=== PATIENT | female | born 1930 | race African-American/Black ===

== ENCOUNTER 2017-03-28 17:15 | Inpatient (IN) ==
[2017-03-28] MEDS ORDERED: ONDANSETRON 4 MG/2 ML VIAL IV PRN ×2 (18:23→19:07)
[2017-03-28] MEDS ORDERED: MAGNESIUM SULF RIDER 4 GM in PREMIX 1 EACH IV PRN (18:23)
[2017-03-28] MEDS ORDERED: MAGNESIUM SULF RIDER 2 GM in PREMIX 1 EACH IV PRN (18:23)
[2017-03-28] MEDS ORDERED: ENOXAPARIN 40 MG/0.4 ML SYRINGE SUBCUT SCH (18:30)
[2017-03-28] MEDS ORDERED: SODIUM CHLORIDE 0.9% 1,000 ML IV SCH (18:30)
[2017-03-28] MEDS ORDERED: metroNIDAZOLE INJ 500 MG in PREMIX 1 EACH IV SCH (18:30)
[2017-03-28] MEDS ORDERED: CIPROFLOXACIN INJ 400 MG in PREMIX 1 EACH IV SCH (18:30)
[2017-03-28] MEDS ORDERED: ACETAMINOPHEN 325 MG TABLET PO PRN (19:07)
[2017-03-28] MEDS: CIPROFLOXACIN INJ 400 MG in PREMIX 1 EACH IV SCH (21:59)
[2017-03-28] MEDS: SODIUM CHLORIDE 0.9% 1,000 ML IV SCH (22:00)
[2017-03-28] MEDS: DOCUSATE SODIUM 100 MG CAPSULE PO SCH (22:18)
[2017-03-28] MEDS ORDERED: QUEtiapine 25 MG TABLET PO PRN (22:30)
[2017-03-28] MEDS ORDERED: GLUCAGON 1 MG VIAL IM PRN (22:33)
[2017-03-28] MEDS ORDERED: DEXTROSE 50% 25 GM/50 ML VIAL IV PRN (22:33)
[2017-03-28] MEDS: INSULIN LISPRO 100 UNIT/ML SUBCUT SCH (22:48)
[2017-03-29 06:01] LABS: Basophils % 0.2 % (0.0-0.8); Hematocrit 28.1 VOL% (35.7-47.0); Hemoglobin 9.7 GM/DL (12.0-16.0); Immature Granulocytes % 0.8 %; Immature Granulocytes Absolute 0.15 #; Lymphocytes # 2.5 10*3/uL (1.4-4.0); Lymphocytes % 12.6 % (21.3-54.2); Mean Corpuscular HGB Conc 34.5 GM/DL (32-36); Mean Corpuscular Hemoglobin 31 PG (27-34); Mean Corpuscular Volume 90.6 FL (87-102); Mean Platelet Volume 9.3 FL (9.6-12.0); Monocytes # 1.9 10*3/uL (0.11-0.8); Monocytes % 9.3 % (1.7-12.7); Neutrophils # 15.4 10*3/uL (1.4-7.4); Neutrophils % 77.1 % (38.7-73.9); Platelet Count 246 T/CUMM (130-400); Red Cell Distribution Width 14.7 % (9.3-17.3)
[2017-03-29 06:34] LABS: Albumin 2.5 G/DL (3.4-5.0); Bilirubin,Total 0.8 MG/DL (0.2-1.0); Magnesium 1.9 MG/DL (1.8-2.4); Osmolality,Calculated 297.4 MOS/KG (273-304); Potassium 3.8 MMOL/L (3.5-5.1); Total Protein 5.6 G/DL (6.4-8.3)
[2017-03-29] MEDS ORDERED: PANTOPRAZOLE 40 MG VIAL IV SCH (09:00)
[2017-03-29] MEDS: ASPIRIN EC 325 MG TABLET PO SCH (09:08)
[2017-03-29] MEDS: ROSUVASTATIN 20 MG TABLET PO SCH (09:08)
[2017-03-29] MEDS: PANTOPRAZOLE 40 MG TABLET PO SCH (09:08)
[2017-03-29] MEDS: DOCUSATE SODIUM 100 MG CAPSULE PO SCH (09:08)
[2017-03-29] MEDS: MEMANTINE 10 MG TABLET PO SCH ×2 (09:08→23:41)
[2017-03-29] MEDS: DONEPEZIL 10 MG TABLET PO SCH (09:08)
[2017-03-29] MEDS: CARVEDILOL 3.125 MG TABLET PO SCH ×2 (09:08→23:40)
[2017-03-29] MEDS: SODIUM CHLORIDE 0.9% 1,000 ML IV SCH ×2 (09:10→09:16)
[2017-03-29] MEDS: CIPROFLOXACIN INJ 400 MG in PREMIX 1 EACH IV SCH ×2 (09:11→23:40)
[2017-03-29] MEDS: INSULIN LISPRO 100 UNIT/ML SUBCUT SCH ×4 (09:14→23:41)
[2017-03-29 16:22] LABS: Calcium 7.5 MG/DL (8.5-10.1); Osmolality,Calculated 295.4 MOS/KG (273-304); Potassium 3.4 MMOL/L (3.5-5.1)
[2017-03-30 06:32] LABS: Basophils % 0.2 % (0.0-0.8); Eosinophils # 0.1 10*3/uL (0.0-0.87); Eosinophils % 1.1 % (0.00-10.9); Hematocrit 24.1 VOL% (35.7-47.0); Hemoglobin 8.3 GM/DL (12.0-16.0); Immature Granulocytes % 1.1 %; Immature Granulocytes Absolute 0.14 #; Lymphocytes % 22.6 % (21.3-54.2); Mean Corpuscular HGB Conc 34.4 GM/DL (32-36); Mean Corpuscular Hemoglobin 31 PG (27-34); Mean Corpuscular Volume 89.9 FL (87-102); Mean Platelet Volume 9.1 FL (9.6-12.0); Monocytes # 1.2 10*3/uL (0.11-0.8); Monocytes % 8.9 % (1.7-12.7); Neutrophils # 8.8 10*3/uL (1.4-7.4); Neutrophils % 66.1 % (38.7-73.9); Platelet Count 190 T/CUMM (130-400); Red Blood Count 2.68 MC/CUMM (3.8-5.5); Red Cell Distribution Width 14.8 % (9.3-17.3); White Blood Count 13.3 T/CUMM (4-12)
[2017-03-30 07:07] LABS: Calcium 7.4 MG/DL (8.5-10.1); Magnesium 1.8 MG/DL (1.8-2.4); Osmolality,Calculated 288.1 MOS/KG (273-304); Potassium 2.9 MMOL/L (3.5-5.1)
[2017-03-30 07:12] LABS: Band Neutrophils 6 % (0-10); Eosinophils 1 % (0-10); Hypochromasia 1+; Lymphocytes 22 % (20-55); Metamyelocytes 1 %; Microcytosis 1+; Segmented Neutrophils 64 % (50-85); Total Cells Counted 100
[2017-03-30] MEDS: SODIUM CHLORIDE 0.9% 1,000 ML IV SCH ×2 (07:35→09:13)
[2017-03-30] MEDS: INSULIN LISPRO 100 UNIT/ML SUBCUT SCH ×4 (07:54→21:20)
[2017-03-30] MEDS: CIPROFLOXACIN INJ 400 MG in PREMIX 1 EACH IV SCH (09:11)
[2017-03-30] MEDS: BISACODYL 5 MG TABLET PO SCH ×2 (09:12→17:59)
[2017-03-30] MEDS: PANTOPRAZOLE 40 MG TABLET PO SCH (09:12)
[2017-03-30] MEDS: CARVEDILOL 3.125 MG TABLET PO SCH ×2 (09:12→21:06)
[2017-03-30] MEDS: DONEPEZIL 10 MG TABLET PO SCH (09:12)
[2017-03-30] MEDS: ASPIRIN EC 325 MG TABLET PO SCH (09:12)
[2017-03-30] MEDS: MEMANTINE 10 MG TABLET PO SCH ×2 (09:12→21:06)
[2017-03-30] MEDS: ROSUVASTATIN 20 MG TABLET PO SCH (09:13)
[2017-03-30] MEDS: POTASSIUM CHLORIDE RIDER 10 MEQ in PREMIX 1 EACH IV SCH ×7 (12:02→17:59)
[2017-03-30] MEDS ORDERED: POLYETHYLENE GLYCOL 3350/ELECTROLYTES 4,000 ML BOTTLE NG ONE (18:00)
[2017-03-30] MEDS ORDERED: MAGNESIUM CITRATE 300 ML BOTTLE PO ONE (21:00)
[2017-03-31] MEDS: BISACODYL 5 MG TABLET PO SCH
[2017-03-31] MEDS: CIPROFLOXACIN INJ 400 MG in PREMIX 1 EACH IV SCH ×3 (01:07→10:30)
[2017-03-31 06:22] LABS: Basophils % 0.1 % (0.0-0.8); Eosinophils # 0.2 10*3/uL (0.0-0.87); Eosinophils % 1.1 % (0.00-10.9); Hematocrit 26.2 VOL% (35.7-47.0); Hemoglobin 9.1 GM/DL (12.0-16.0); Immature Granulocytes % 0.7 %; Lymphocytes # 2.6 10*3/uL (1.4-4.0); Lymphocytes % 19.4 % (21.3-54.2); Mean Corpuscular HGB Conc 34.7 GM/DL (32-36); Mean Corpuscular Hemoglobin 32 PG (27-34); Mean Corpuscular Volume 91.3 FL (87-102); Mean Platelet Volume 9.1 FL (9.6-12.0); Monocytes # 1.1 10*3/uL (0.11-0.8); Monocytes % 8.3 % (1.7-12.7); Neutrophils # 9.5 10*3/uL (1.4-7.4); Neutrophils % 70.4 % (38.7-73.9); Platelet Count 201 T/CUMM (130-400); Red Blood Count 2.87 MC/CUMM (3.8-5.5); Red Cell Distribution Width 14.8 % (9.3-17.3); White Blood Count 13.5 T/CUMM (4-12)
[2017-03-31 06:50] LABS: Calcium 7.9 MG/DL (8.5-10.1); Magnesium 1.9 MG/DL (1.8-2.4); Potassium 3.5 MMOL/L (3.5-5.1)
[2017-03-31] MEDS: SODIUM CHLORIDE 0.9% 1,000 ML IV SCH ×3 (07:14→17:26)
[2017-03-31] MEDS: INSULIN LISPRO 100 UNIT/ML SUBCUT SCH ×4 (08:03→21:38)
[2017-03-31] MEDS ORDERED: LIDOCAINE 100 MG/5 ML SYRINGE ONE (09:00)
[2017-03-31] MEDS ORDERED: PHENYLEPHRINE 1 MG/10 ML SYRINGE IV ONE (09:00)
[2017-03-31] MEDS ORDERED: PROPOFOL 200 MG/20 ML VIAL IV ONE (09:00)
[2017-03-31] MEDS: ASPIRIN EC 325 MG TABLET PO SCH (10:21)
[2017-03-31] MEDS: DONEPEZIL 10 MG TABLET PO SCH (10:21)
[2017-03-31] MEDS: CARVEDILOL 3.125 MG TABLET PO SCH ×2 (10:22→21:39)
[2017-03-31] MEDS: ROSUVASTATIN 20 MG TABLET PO SCH (10:22)
[2017-03-31] MEDS: PANTOPRAZOLE 40 MG TABLET PO SCH (10:22)
[2017-03-31] MEDS: MEMANTINE 10 MG TABLET PO SCH ×2 (10:22→21:39)
[2017-04-01 10:00] LABS: Basophils % 0.2 % (0.0-0.8); Eosinophils # 0.2 10*3/uL (0.0-0.87); Eosinophils % 2.3 % (0.00-10.9); Hematocrit 22.7 VOL% (35.7-47.0); Immature Granulocytes % 0.8 %; Immature Granulocytes Absolute 0.08 #; Lymphocytes # 2.9 10*3/uL (1.4-4.0); Lymphocytes % 29.8 % (21.3-54.2); Mean Corpuscular HGB Conc 35.2 GM/DL (32-36); Mean Corpuscular Hemoglobin 32 PG (27-34); Mean Corpuscular Volume 90.8 FL (87-102); Mean Platelet Volume 9.3 FL (9.6-12.0); Monocytes # 0.9 10*3/uL (0.11-0.8); Monocytes % 9.3 % (1.7-12.7); Neutrophils # 5.5 10*3/uL (1.4-7.4); Neutrophils % 57.6 % (38.7-73.9); Platelet Count 198 T/CUMM (130-400); Red Cell Distribution Width 14.8 % (9.3-17.3); White Blood Count 9.6 T/CUMM (4-12)
[2017-04-01] MEDS ORDERED: SODIUM CHLORIDE 0.9% 1,000 ML IV PRN (11:00)
[2017-04-01] MEDS ORDERED: FUROSEMIDE 40 MG/4 ML VIAL IV PRN (11:00)
[2017-04-01] MEDS: INSULIN LISPRO 100 UNIT/ML SUBCUT SCH ×4 (11:31→21:11)
[2017-04-01] MEDS: ASPIRIN EC 325 MG TABLET PO SCH (11:32)
[2017-04-01] MEDS: SODIUM CHLORIDE 0.9% 1,000 ML IV SCH ×3 (11:32→21:29)
[2017-04-01] MEDS: DONEPEZIL 10 MG TABLET PO SCH (11:32)
[2017-04-01] MEDS: CARVEDILOL 3.125 MG TABLET PO SCH ×2 (11:32→21:29)
[2017-04-01] MEDS: MEMANTINE 10 MG TABLET PO SCH ×2 (11:33→21:29)
[2017-04-01] MEDS: CIPROFLOXACIN INJ 400 MG in PREMIX 1 EACH IV SCH (11:33)
[2017-04-01] MEDS: PANTOPRAZOLE 40 MG TABLET PO SCH (11:33)
[2017-04-01] MEDS: ROSUVASTATIN 20 MG TABLET PO SCH (11:33)
[2017-04-01 11:35] LABS: Calcium 7.6 MG/DL (8.5-10.1); Osmolality,Calculated 293.7 MOS/KG (273-304); Potassium 3.2 MMOL/L (3.5-5.1)
[2017-04-02 01:40] LABS: Calcium 7.6 MG/DL (8.5-10.1); Hematocrit 32.8 VOL% (35.7-47.0); Hemoglobin 11.8 GM/DL (12.0-16.0); Osmolality,Calculated 292.7 MOS/KG (273-304); Potassium 2.8 MMOL/L (3.5-5.1)
[2017-04-02 01:45] LABS: Basophils % 0.3 % (0.0-0.8); Eosinophils # 0.3 10*3/uL (0.0-0.87); Eosinophils % 3.4 % (0.00-10.9); Hematocrit 32.9 VOL% (35.7-47.0); Hemoglobin 11.7 GM/DL (12.0-16.0); Immature Granulocytes % 0.6 %; Immature Granulocytes Absolute 0.06 #; Lymphocytes % 32.7 % (21.3-54.2); Mean Corpuscular HGB Conc 35.6 GM/DL (32-36); Mean Corpuscular Hemoglobin 31 PG (27-34); Mean Corpuscular Volume 88.2 FL (87-102); Monocytes % 10.5 % (1.7-12.7); Neutrophils # 4.9 10*3/uL (1.4-7.4); Neutrophils % 52.5 % (38.7-73.9); Platelet Count 172 T/CUMM (130-400); Red Blood Count 3.73 MC/CUMM (3.8-5.5); Red Cell Distribution Width 14.6 % (9.3-17.3); White Blood Count 9.3 T/CUMM (4-12)
[2017-04-02] MEDS: INSULIN LISPRO 100 UNIT/ML SUBCUT SCH ×4 (08:11→23:45)
[2017-04-02] MEDS: ASPIRIN EC 325 MG TABLET PO SCH (08:55)
[2017-04-02] MEDS: CARVEDILOL 3.125 MG TABLET PO SCH ×2 (08:55→23:44)
[2017-04-02] MEDS: DONEPEZIL 10 MG TABLET PO SCH (08:55)
[2017-04-02] MEDS: MEMANTINE 10 MG TABLET PO SCH ×2 (08:55→23:45)
[2017-04-02] MEDS: PANTOPRAZOLE 40 MG TABLET PO SCH (08:55)
[2017-04-02] MEDS: ROSUVASTATIN 20 MG TABLET PO SCH (08:55)
[2017-04-02] MEDS: SODIUM CHLORIDE 0.9% 1,000 ML IV SCH ×2 (09:02→23:46)
[2017-04-02] MEDS: CIPROFLOXACIN INJ 400 MG in PREMIX 1 EACH IV SCH (09:03)
[2017-04-02] MEDS: POTASSIUM CHLORIDE 8 MEQ CAPSULE PO SCH ×2 (12:30→23:44)
[2017-04-03 02:27] LABS: Basophils % 0.2 % (0.0-0.8); Eosinophils # 0.3 10*3/uL (0.0-0.87); Eosinophils % 2.8 % (0.00-10.9); Hematocrit 31.2 VOL% (35.7-47.0); Immature Granulocytes % 0.9 %; Immature Granulocytes Absolute 0.08 #; Lymphocytes % 33.5 % (21.3-54.2); Mean Corpuscular HGB Conc 35.3 GM/DL (32-36); Mean Corpuscular Hemoglobin 31 PG (27-34); Mean Corpuscular Volume 86.7 FL (87-102); Mean Platelet Volume 8.6 FL (9.6-12.0); Monocytes # 1.1 10*3/uL (0.11-0.8); Monocytes % 11.9 % (1.7-12.7); Neutrophils # 4.5 10*3/uL (1.4-7.4); Neutrophils % 50.7 % (38.7-73.9); Platelet Count 152 T/CUMM (130-400); Red Cell Distribution Width 14.2 % (9.3-17.3); White Blood Count 8.9 T/CUMM (4-12)
[2017-04-03 02:54] LABS: Calcium 7.4 MG/DL (8.5-10.1); Osmolality,Calculated 296.4 MOS/KG (273-304); Potassium 2.9 MMOL/L (3.5-5.1)
[2017-04-03 03:15] LABS: Hypochromasia 1+; Microcytosis 1+; Platelet Estimate Normal
[2017-04-03 03:16] LABS: Anisocytosis 1+
[2017-04-03 03:25] LABS: Risk Ratio 3.78
[2017-04-03] MEDS: SODIUM CHLORIDE 0.9% 1,000 ML IV SCH (08:11)
[2017-04-03] MEDS: POTASSIUM CHLORIDE 8 MEQ CAPSULE PO SCH (08:36)
[2017-04-03] MEDS: ASPIRIN EC 325 MG TABLET PO SCH (08:36)
[2017-04-03] MEDS: MEMANTINE 10 MG TABLET PO SCH (08:36)
[2017-04-03] MEDS: INSULIN LISPRO 100 UNIT/ML SUBCUT SCH (08:37)
[2017-04-03] MEDS: DONEPEZIL 10 MG TABLET PO SCH (08:37)
[2017-04-03] MEDS: CARVEDILOL 3.125 MG TABLET PO SCH (08:37)
[2017-04-03] MEDS: PANTOPRAZOLE 40 MG TABLET PO SCH (08:37)
[2017-04-03] MEDS: ROSUVASTATIN 20 MG TABLET PO SCH (08:37)
[2017-04-03 09:32] VITALS: BP 164/68
[2017-04-03] MEDS: CIPROFLOXACIN INJ 400 MG in PREMIX 1 EACH IV SCH (09:35)
== END 2017-04-03 10:53 | disposition hospice, home (50) | DRG 391 ==
LOC: EDBD → EDUNIT# → N.ED 17:15 → N.EDINP 19:07 → SUPCPDRO 19:07 → N.5E 19:25
PROVIDERS: ADMIT Internal Medicine; ATTEND Internal Medicine

== ENCOUNTER 2017-08-21 11:45 | Inpatient (IN) ==
[2017-08-21] MEDS ORDERED: ONDANSETRON 4 MG/2 ML VIAL IV PRN ×2 (11:52→13:00)
[2017-08-21] MEDS: SODIUM CHLORIDE 0.9% 1,000 ML IV SCH ×2 (12:13→15:43)
[2017-08-21] MEDS ORDERED: LEVOFLOXACIN INJ 500 MG in PREMIX 1 EACH IV STA (12:31)
[2017-08-21] MEDS ORDERED: ACETAMINOPHEN 325 MG TABLET PO PRN (13:00)
[2017-08-21] MEDS ORDERED: MAGNESIUM HYDROXIDE SUSP 30 ML UDCUP PO PRN (13:00)
[2017-08-21] MEDS ORDERED: GLUCAGON 1 MG VIAL IM PRN (14:00)
[2017-08-21] MEDS ORDERED: DEXTROSE 50% 25 GM/50 ML VIAL IV PRN (14:00)
[2017-08-21 15:22] LABS: Basophils % 0.2 % (0.0-0.8); Eosinophils # 0.1 10*3/uL (0.0-0.87); Eosinophils % 0.3 % (0.00-10.9); Hematocrit 28.6 VOL% (35.7-47.0); Hemoglobin 8.5 GM/DL (12.0-16.0); Immature Granulocytes Absolute 0.15 #; Lymphocytes # 1.9 10*3/uL (1.4-4.0); Mean Corpuscular HGB Conc 29.7 GM/DL (32-36); Mean Corpuscular Hemoglobin 28 PG (27-34); Mean Corpuscular Volume 95.7 FL (87-102); Mean Platelet Volume 10.8 FL (9.6-12.0); Monocytes # 0.8 10*3/uL (0.11-0.8); Monocytes % 5.3 % (1.7-12.7); NRBC # 0.12 10*3/uL; Neutrophils # 11.8 10*3/uL (1.4-7.4); Neutrophils % 80.2 % (38.7-73.9); Platelet Count 255 T/CUMM (130-400); Red Blood Count 2.99 MC/CUMM (3.8-5.5); Red Cell Distribution Width 17.8 % (9.3-17.3); White Blood Count 14.7 T/CUMM (4-12)
[2017-08-21 15:31] LABS: INR 1.4; PT Patient Result 15.1 SECS
[2017-08-21] MEDS: DEXTROSE 5% NACL 0.45% 1,000 ML IV SCH (17:09)
[2017-08-21] MEDS: INSULIN REGULAR 100 UNIT/ML SUBCUT SCH ×2 (17:14→22:41)
[2017-08-21] MEDS ORDERED: INSULIN REGULAR 100 UNIT/ML SUBCUT SCH ×2 (18:00)
[2017-08-21 19:34] LABS: Alanine Aminotransferase 33 U/L (13-56); Albumin 1.6 G/DL (3.4-5.0); Alkaline Phosphatase 247 U/L (45-117); Aspartate Amino Transferase 50 U/L (0-37); Blood Urea Nitrogen 125 MG/DL (7-18); Calcium 7.5 MG/DL (8.5-10.1); Glucose 301 MG/DL (74-106); Total Protein 6.2 G/DL (6.4-8.3)
[2017-08-21 19:35] LABS: Osmolality,Calculated 387.1 MOS/KG (273-304); Potassium 4.8 MMOL/L (3.5-5.1); Sodium > 171 MMOL/L (136-145)
[2017-08-21 20:15] LABS: Apearance,Urine CLOUDY (Clear); Bacteria,Urine Many /HPF (Few); Bilirubin,Urine Negative (Negative); Blood, Urine Moderate mg/dL (Negative); Glucose,Urine (UA) Negative (Negative); Ketones,Urine Negative (Negative); Mucus,Urine Occasional /LPF (Occasional); Nitrite,Urine Negative (Negative); Protein,Urine 100 MG/DL; RBC,Urine 26 /HPF (0-4); Urine Color Yellow (Yellow); Urine Specific Gravity 1.001 (1.001-1.035); Urine Urobilinogen < 2.0 EU/DL (0.2-1.0); WBC,Urine 848 /HPF (0-6)
[2017-08-21] MEDS: CARVEDILOL 6.25 MG TABLET PO SCH (22:41)
[2017-08-21] MEDS: MEMANTINE 10 MG TABLET PO SCH (22:41)
[2017-08-22] MEDS: DEXTROSE 5% NACL 0.45% 1,000 ML IV SCH (01:14)
[2017-08-22] MEDS: INSULIN REGULAR 100 UNIT/ML SUBCUT SCH ×6 (02:16→22:49)
[2017-08-22] MEDS: SODIUM CHLORIDE 0.45% 1,000 ML IV SCH ×2 (05:15→13:36)
[2017-08-22 07:22] LABS: Calcium 7.6 MG/DL (8.5-10.1); Osmolality,Calculated 392.5 MOS/KG (273-304); Potassium 4.7 MMOL/L (3.5-5.1); Prealbumin 6.1 MG/DL (20-40)
[2017-08-22 07:27] LABS: Basophils % 0.2 % (0.0-0.8); Eosinophils % 0.2 % (0.00-10.9); Hematocrit 24.3 VOL% (35.7-47.0); Hemoglobin 7.1 GM/DL (12.0-16.0); Immature Granulocytes % 1.2 %; Immature Granulocytes Absolute 0.15 #; Lymphocytes # 1.7 10*3/uL (1.4-4.0); Lymphocytes % 14.4 % (21.3-54.2); Mean Corpuscular HGB Conc 29.2 GM/DL (32-36); Mean Corpuscular Hemoglobin 28 PG (27-34); Mean Corpuscular Volume 96.8 FL (87-102); Mean Platelet Volume 11.4 FL (9.6-12.0); Monocytes # 0.8 10*3/uL (0.11-0.8); Monocytes % 6.2 % (1.7-12.7); NRBC # 0.13 10*3/uL; Neutrophils # 9.4 10*3/uL (1.4-7.4); Neutrophils % 77.8 % (38.7-73.9); Platelet Count 189 T/CUMM (130-400); Red Blood Count 2.51 MC/CUMM (3.8-5.5)
[2017-08-22 07:59] LABS: Band Neutrophils 2 % (0-10); Eosinophils 1 % (0-10); Lymphocytes 21 % (20-55); Segmented Neutrophils 72 % (50-85); Total Cells Counted 100
[2017-08-22 08:00] LABS: Giant Platelets Few; Hypochromasia 1+; Platelet Estimate Normal
[2017-08-22 08:01] LABS: Microcytosis 1+
[2017-08-22] MEDS ORDERED: LIDOCAINE 100 MG/5 ML SYRINGE ONE (10:00)
[2017-08-22] MEDS ORDERED: PROPOFOL 200 MG/20 ML VIAL IV ONE (10:00)
[2017-08-22] MEDS ORDERED: GLYCOPYRROLATE 0.4 MG/2 ML VIAL ONE (10:00)
[2017-08-22] MEDS: MEMANTINE 10 MG TABLET PO SCH ×2 (10:22→21:53)
[2017-08-22] MEDS: ROSUVASTATIN 20 MG TABLET PO SCH (10:22)
[2017-08-22] MEDS: PANTOPRAZOLE 40 MG TABLET PO SCH (10:22)
[2017-08-22] MEDS: sitaGLIPtin 100 MG TABLET PO SCH (10:22)
[2017-08-22] MEDS: CARVEDILOL 6.25 MG TABLET PO SCH ×2 (10:22→21:53)
[2017-08-22] MEDS ORDERED: SODIUM CHLORIDE 0.9% 1,000 ML IV PRN (11:59)
[2017-08-22] MEDS ORDERED: FUROSEMIDE 40 MG/4 ML VIAL IM ONE (12:01)
[2017-08-22] MEDS ORDERED: SKIN HEALING OINT (AQUAPHOR) 50 GM TUBE TOP PRN (14:45)
[2017-08-22] MEDS ORDERED: FUROSEMIDE 40 MG/4 ML VIAL IV ONE (15:52)
[2017-08-22] MEDS ORDERED: LEVOFLOXACIN INJ 500 MG in PREMIX 1 EACH IV SCH (16:00)
[2017-08-22] MEDS: COLLAGENASE OINT 30 GM TUBE TOP SCH (17:49)
[2017-08-22] MEDS: SODIUM HYPOCHLORITE 0.25% IRRIG 473 ML BOTTLE TOP SCH (18:43)
[2017-08-22] MEDS: DONEPEZIL 10 MG TABLET PO SCH (21:53)
[2017-08-23 01:01] LABS: Hematocrit 32.2 VOL% (35.7-47.0)
[2017-08-23 01:04] LABS: Hemoglobin 10.5 GM/DL (12.0-16.0)
[2017-08-23] MEDS: INSULIN REGULAR 100 UNIT/ML SUBCUT SCH ×7 (02:43→22:28)
[2017-08-23 05:32] LABS: Basophils % 0.2 % (0.0-0.8); Eosinophils # 0.1 10*3/uL (0.0-0.87); Eosinophils % 0.5 % (0.00-10.9); Hematocrit 31.8 VOL% (35.7-47.0); Hemoglobin 10.3 GM/DL (12.0-16.0); Immature Granulocytes % 1.3 %; Immature Granulocytes Absolute 0.13 #; Lymphocytes # 1.3 10*3/uL (1.4-4.0); Lymphocytes % 12.9 % (21.3-54.2); Mean Corpuscular HGB Conc 32.4 GM/DL (32-36); Mean Corpuscular Hemoglobin 28 PG (27-34); Mean Corpuscular Volume 87.4 FL (87-102); Mean Platelet Volume 11.5 FL (9.6-12.0); Monocytes # 0.8 10*3/uL (0.11-0.8); NRBC # 0.12 10*3/uL; Neutrophils # 7.7 10*3/uL (1.4-7.4); Neutrophils % 77.1 % (38.7-73.9); Platelet Count 157 T/CUMM (130-400); Red Blood Count 3.64 MC/CUMM (3.8-5.5); Red Cell Distribution Width 17.6 % (9.3-17.3)
[2017-08-23 05:57] LABS: Calcium 7.3 MG/DL (8.5-10.1); Osmolality,Calculated 382.2 MOS/KG (273-304); Potassium 4.2 MMOL/L (3.5-5.1)
[2017-08-23 06:44] LABS: Hypochromasia 2+; Microcytosis 2+
[2017-08-23] MEDS: SODIUM CHLORIDE 0.45% 1,000 ML IV SCH ×5 (08:07→22:29)
[2017-08-23] MEDS ORDERED: BISACODYL 10 MG SUPP RECTAL PRN (08:34)
[2017-08-23] MEDS ORDERED: PRAMOXINE/HYDROCORTISONE RECTAL FOAM 10 GM CAN RECTAL PRN (08:36)
[2017-08-23] MEDS: ROSUVASTATIN 20 MG TABLET PO SCH (09:42)
[2017-08-23] MEDS: CARVEDILOL 6.25 MG TABLET PO SCH ×2 (09:42→22:30)
[2017-08-23] MEDS: FLUCONAZOLE 200 MG TABLET PO SCH (09:42)
[2017-08-23] MEDS: sitaGLIPtin 100 MG TABLET PO SCH (09:42)
[2017-08-23] MEDS: COLLAGENASE OINT 30 GM TUBE TOP SCH (09:42)
[2017-08-23] MEDS: PANTOPRAZOLE 40 MG TABLET PO SCH (09:42)
[2017-08-23] MEDS: SODIUM HYPOCHLORITE 0.25% IRRIG 473 ML BOTTLE TOP SCH (09:42)
[2017-08-23] MEDS: DONEPEZIL 10 MG TABLET PO SCH (09:42)
[2017-08-23] MEDS: MEMANTINE 10 MG TABLET PO SCH ×2 (09:42→22:30)
[2017-08-23] MEDS: NYSTATIN POWDER 15 GM BOTTLE TOP SCH ×2 (09:48→22:30)
[2017-08-23] MEDS ORDERED: PRAMOXINE 1% RECTAL FOAM 15 GM CAN TOP PRN (12:08)
[2017-08-24] MEDS: INSULIN REGULAR 100 UNIT/ML SUBCUT SCH ×6 (02:35→22:16)
[2017-08-24] MEDS: SODIUM CHLORIDE 0.45% 1,000 ML IV SCH ×3 (04:30→22:03)
[2017-08-24 07:03] LABS: Basophils % 0.2 % (0.0-0.8); Eosinophils % 0.2 % (0.00-10.9); Hemoglobin 8.7 GM/DL (12.0-16.0); Immature Granulocytes % 0.9 %; Immature Granulocytes Absolute 0.05 #; Lymphocytes # 1.3 10*3/uL (1.4-4.0); Lymphocytes % 22.6 % (21.3-54.2); Mean Corpuscular HGB Conc 33.5 GM/DL (32-36); Mean Corpuscular Hemoglobin 28 PG (27-34); Mean Corpuscular Volume 84.1 FL (87-102); Mean Platelet Volume 11.6 FL (9.6-12.0); Monocytes # 0.7 10*3/uL (0.11-0.8); Monocytes % 11.1 % (1.7-12.7); NRBC # 0.08 10*3/uL; Neutrophils # 3.8 10*3/uL (1.4-7.4); Platelet Count 113 T/CUMM (130-400); Red Blood Count 3.09 MC/CUMM (3.8-5.5); Red Cell Distribution Width 17.2 % (9.3-17.3); White Blood Count 5.9 T/CUMM (4-12)
[2017-08-24 07:54] LABS: Band Neutrophils 8 % (0-10); Lymphocytes 43 % (20-55); Nucleated Red Blood Cells 2 (0-5); Segmented Neutrophils 43 % (50-85); Total Cells Counted 100
[2017-08-24 07:55] LABS: Atypical Lymphocytes Few; Platelet Estimate Normal
[2017-08-24] MEDS ORDERED: fentaNYL 50 MCG/HR PATCH TRANSDERM SCH (09:00)
[2017-08-24] MEDS: FLUCONAZOLE 200 MG TABLET PO SCH (09:52)
[2017-08-24] MEDS: DONEPEZIL 10 MG TABLET PO SCH (09:53)
[2017-08-24] MEDS: CARVEDILOL 6.25 MG TABLET PO SCH ×2 (09:53→22:02)
[2017-08-24] MEDS: MEMANTINE 10 MG TABLET PO SCH ×2 (09:53→22:02)
[2017-08-24] MEDS: sitaGLIPtin 100 MG TABLET PO SCH (09:53)
[2017-08-24] MEDS: ROSUVASTATIN 20 MG TABLET PO SCH (09:53)
[2017-08-24] MEDS: PANTOPRAZOLE 40 MG TABLET PO SCH (09:53)
[2017-08-24] MEDS: NYSTATIN POWDER 15 GM BOTTLE TOP SCH ×2 (09:54→22:03)
[2017-08-24] MEDS: SODIUM HYPOCHLORITE 0.25% IRRIG 473 ML BOTTLE TOP SCH (09:54)
[2017-08-24] MEDS: COLLAGENASE OINT 30 GM TUBE TOP SCH (09:54)
[2017-08-24 14:39] LABS: Calcium 7.8 MG/DL (8.5-10.1); Osmolality,Calculated 351.7 MOS/KG (273-304); Potassium 3.5 MMOL/L (3.5-5.1)
[2017-08-24] MEDS: LINEZOLID INJ 600 MG in PREMIX 1 EACH IV SCH (15:15)
[2017-08-25] MEDS: INSULIN REGULAR 100 UNIT/ML SUBCUT SCH ×6 (01:45→21:54)
[2017-08-25] MEDS: LINEZOLID INJ 600 MG in PREMIX 1 EACH IV SCH ×2 (01:46→15:18)
[2017-08-25] MEDS: SODIUM CHLORIDE 0.45% 1,000 ML IV SCH ×3 (06:13→21:55)
[2017-08-25 06:49] LABS: Basophils % 0.1 % (0.0-0.8); Eosinophils % 0.6 % (0.00-10.9); Hematocrit 23.1 VOL% (35.7-47.0); Immature Granulocytes % 0.9 %; Immature Granulocytes Absolute 0.06 #; Lymphocytes # 1.7 10*3/uL (1.4-4.0); Lymphocytes % 24.5 % (21.3-54.2); Mean Corpuscular HGB Conc 33.8 GM/DL (32-36); Mean Corpuscular Hemoglobin 29 PG (27-34); Mean Corpuscular Volume 84.6 FL (87-102); Mean Platelet Volume 11.7 FL (9.6-12.0); Monocytes # 0.9 10*3/uL (0.11-0.8); Monocytes % 13.4 % (1.7-12.7); NRBC # 0.03 10*3/uL; Neutrophils # 4.2 10*3/uL (1.4-7.4); Neutrophils % 60.5 % (38.7-73.9); Red Blood Count 2.73 MC/CUMM (3.8-5.5); Red Cell Distribution Width 17.6 % (9.3-17.3)
[2017-08-25 06:52] LABS: Hemoglobin 7.8 GM/DL (12.0-16.0); Platelet Count 97 T/CUMM (130-400)
[2017-08-25 06:56] LABS: Calcium 6.8 MG/DL (8.5-10.1); Osmolality,Calculated 350.1 MOS/KG (273-304); Potassium 3.3 MMOL/L (3.5-5.1); Prealbumin 3.7 MG/DL (20-40)
[2017-08-25 06:57] LABS: Albumin 1.1 G/DL (3.4-5.0); Bilirubin,Total 0.5 MG/DL (0.2-1.0); Calcium 7.1 MG/DL (8.5-10.1); Potassium 3.4 MMOL/L (3.5-5.1)
[2017-08-25 07:04] LABS: Band Neutrophils 2 % (0-10); Eosinophils 3 % (0-10); Lymphocytes 35 % (20-55); Nucleated Red Blood Cells 1 (0-5); Platelet Estimate Decreased; Segmented Neutrophils 49 % (50-85); Total Cells Counted 100
[2017-08-25 07:05] LABS: Atypical Lymphocytes Few; Giant Platelets Few; Hypochromasia 1+; Microcytosis Slight; Ovalocytes Slight
[2017-08-25] MEDS ORDERED: SODIUM CHLORIDE 0.9% 1,000 ML IV PRN (07:48)
[2017-08-25] MEDS: PANTOPRAZOLE 40 MG TABLET PO SCH (09:04)
[2017-08-25] MEDS: sitaGLIPtin 100 MG TABLET PO SCH (09:04)
[2017-08-25] MEDS: MEMANTINE 10 MG TABLET PO SCH ×2 (09:04→21:54)
[2017-08-25] MEDS: FLUCONAZOLE 200 MG TABLET PO SCH (09:04)
[2017-08-25] MEDS: DONEPEZIL 10 MG TABLET PO SCH (09:04)
[2017-08-25] MEDS: ROSUVASTATIN 20 MG TABLET PO SCH (09:04)
[2017-08-25] MEDS: NYSTATIN POWDER 15 GM BOTTLE TOP SCH ×2 (09:05→21:54)
[2017-08-25] MEDS: CARVEDILOL 6.25 MG TABLET PO SCH ×2 (09:05→21:54)
[2017-08-25] MEDS: COLLAGENASE OINT 30 GM TUBE TOP SCH (09:05)
[2017-08-25] MEDS: SODIUM HYPOCHLORITE 0.25% IRRIG 473 ML BOTTLE TOP SCH (09:05)
[2017-08-25] MEDS: POTASSIUM CHLORIDE 20 MEQ/15 ML UDCUP PEG SCH (09:05)
[2017-08-25] MEDS: BACITRACIN OINT 0.9 GM PACK TOP SCH (15:17)
[2017-08-26] MEDS: LINEZOLID INJ 600 MG in PREMIX 1 EACH IV SCH ×2 (02:12→14:08)
[2017-08-26] MEDS: INSULIN REGULAR 100 UNIT/ML SUBCUT SCH ×4 (02:12→15:32)
[2017-08-26] MEDS: SODIUM CHLORIDE 0.45% 1,000 ML IV SCH ×3 (05:02→15:31)
[2017-08-26 05:26] LABS: Basophils % 0.2 % (0.0-0.8); Eosinophils # 0.1 10*3/uL (0.0-0.87); Eosinophils % 1.3 % (0.00-10.9); Hematocrit 31.1 VOL% (35.7-47.0); Immature Granulocytes % 1.5 %; Immature Granulocytes Absolute 0.13 #; Lymphocytes # 1.5 10*3/uL (1.4-4.0); Lymphocytes % 17.1 % (21.3-54.2); Mean Corpuscular HGB Conc 31.8 GM/DL (32-36); Mean Corpuscular Hemoglobin 27 PG (27-34); Mean Corpuscular Volume 83.4 FL (87-102); Mean Platelet Volume 12.7 FL (9.6-12.0); Monocytes # 0.9 10*3/uL (0.11-0.8); Monocytes % 10.5 % (1.7-12.7); NRBC # 0.02 10*3/uL; Neutrophils # 6.2 10*3/uL (1.4-7.4); Neutrophils % 69.4 % (38.7-73.9); Platelet Count 93 T/CUMM (130-400); Red Cell Distribution Width 21.2 % (9.3-17.3)
[2017-08-26 05:30] LABS: Hemoglobin 9.9 GM/DL (12.0-16.0); Red Blood Count 3.73 MC/CUMM (3.8-5.5)
[2017-08-26 05:56] LABS: Band Neutrophils 1 % (0-10); Eosinophils 2 % (0-10); Hypochromasia 1+; Lymphocytes 18 % (20-55); Microcytosis Slight; Ovalocytes Slight; Platelet Estimate Decreased; Segmented Neutrophils 69 % (50-85); Total Cells Counted 100
[2017-08-26 06:01] LABS: Osmolality,Calculated 334.6 MOS/KG (273-304); Potassium 4.1 MMOL/L (3.5-5.1)
[2017-08-26] MEDS: MEMANTINE 10 MG TABLET PO SCH (09:00)
[2017-08-26] MEDS: CARVEDILOL 6.25 MG TABLET PO SCH (09:00)
[2017-08-26] MEDS: FLUCONAZOLE 200 MG TABLET PO SCH (09:00)
[2017-08-26] MEDS: PANTOPRAZOLE 40 MG TABLET PO SCH (09:00)
[2017-08-26] MEDS: ROSUVASTATIN 20 MG TABLET PO SCH (09:00)
[2017-08-26] MEDS: sitaGLIPtin 100 MG TABLET PO SCH (09:00)
[2017-08-26] MEDS: POTASSIUM CHLORIDE 20 MEQ/15 ML UDCUP PEG SCH (09:00)
[2017-08-26] MEDS: BACITRACIN OINT 0.9 GM PACK TOP SCH (09:00)
[2017-08-26] MEDS: DONEPEZIL 10 MG TABLET PO SCH (09:00)
[2017-08-26] MEDS: NYSTATIN POWDER 15 GM BOTTLE TOP SCH (09:01)
[2017-08-26] MEDS: SODIUM HYPOCHLORITE 0.25% IRRIG 473 ML BOTTLE TOP SCH (09:01)
[2017-08-26] MEDS: COLLAGENASE OINT 30 GM TUBE TOP SCH (09:02)
[2017-08-26 15:34] VITALS: BP 144/65
[2017-08-28] MEDS ORDERED: cloNIDine 0.1 MG/24 HR PATCH TRANSDERM SCH (09:00)
== END 2017-08-26 16:15 | disposition hospice, home (50) | DRG 683 ==
LOC: N.GILAB 11:45 → N.5E 11:45
PROVIDERS: ADMIT Internal Medicine Gastroenterology; ATTEND Internal Medicine
PROC: EGDWPEG (ICD-10-PCS; 2017-08-21 11:20)